=== PATIENT | female | born 1955 | race Caucasian/White ===

== ENCOUNTER 2017-02-13 09:31 | Emergency (ER) | payer BC ==
[2017-02-13] MEDS ORDERED: Ketorolac INJ* 30 MG/ML 1 ML VIAL IM ONE (10:16)
--- NOTE | 2017-02-13 10:21 | UC ---
Back Pain HPI - HPI Summary HPI Summary: 2 days ago was walking up stairs from basement/bent over to pickle cutter something/ got dizzy and fell backwards down 5 stairs unable to sleep much last PM due to pain c/o back pain >>neck pain> headache no CP or SOB - History of Current Complaint Chief Complaint: UCBackPain Stated Complaint: BACK AND NECK INJURY Time Seen by Provider: 02/13/17 10:05 Hx Obtained From: Patient Onset/Duration: Sudden Onset, Lasting Days Timing: Constant Severity Initially: Severe Severity Currently: Severe Pain Intensity: 8 Pain Scale Used: 0-10 Numeric Back Pain: Is Discrete @ - lower pain Character: Dull, Aching, Throbbing, Spasmodic Aggravating: Movement, Bending Alleviating: Nothing Associated Signs And Symptoms: Positive: Bruising - Allergies/Home Medications Allergies/Adverse Reactions: Allergies Allergy/AdvReac Type Severity Reaction Status Date / Time No Known Allergies Allergy Verified 02/13/17 10:01 Home Medications: Home Medications Atorvastatin* [Lipitor 20 MG*] 20 mg PO DAILY 02/13/17 [History Confirmed ] DULoxetine DR CAP* [Cymbalta CAP*] 60 mg PO DAILY 02/13/17 [History Confirmed ] Lisinopril & Hydrochlorothiazi [Zestoretic 20-12.5 mg-] 02/13/17 [History] PMH/Surg Hx/FS Hx/Imm Hx Endocrine History Of: Denies: Diabetes, Thyroid Disease Cardiovascular History Of: Reports: Hypertension Denies: Cardiac Disorders Respiratory History Of: Denies: COPD, Asthma GI/ History Of: Denies: Ulcer Cancer History Of: Denies: Breast Cancer - Surgical History Surgical History: Yes Surgery Procedure, Year, and Place: gastric bypass 2003. 1985 left hip replace and 2001 right hip replace - Family History Known Family History: Positive: Hypertension - Social History Alcohol Use: None Substance Use Type: None Smoking Status (MU): Never Smoked Tobacco Review of Systems Constitutional: Negative Skin: Bruising Eyes: Negative ENT: Negative Respiratory: Negative Cardiovascular: Negative Gastrointestinal: Negative Genitourinary: Negative Motor: Negative Neurovascular: Negative Musculoskeletal: Myalgia Neurological: Negative Psychological: Negative All Other Systems Reviewed And Are Negative: Yes Physical Exam Triage Information Reviewed: Yes Appearance: Well-Appearing, Well-Nourished, Pain Distress Vital Signs: Initial Vital Signs Temp 97.5 F 02/13/17 09:54 Pulse 85 02/13/17 09:54 Resp 20 02/13/17 09:54 BP 164/88 02/13/17 09:54 Pulse Ox 95 02/13/17 09:54 Vital Signs Reviewed: Yes Eyes: Positive: Conjunctiva Clear ENT: Positive: Hearing grossly normal, Other: - surgical scars BCCs nose. Negative: Nasal congestion, Nasal drainage, Trismus, Muffled/hoarse voice Dental: Negative: Dental Fracture @ Neck: Positive: Supple, Tenderness @ - bilateral trapzieus, Other: - no midline kailyn tenderness Respiratory: Positive: Lungs clear, Normal breath sounds, No respiratory distress, No accessory muscle use Cardiovascular: Positive: RRR, No Murmur Abdomen Description: Positive: Nontender Neurological: Positive: Alert, Muscle Tone Normal Psychological Exam: Normal Re-Evaluation - Re-Evaluation First Eval Re-Evaluation Time: 11:22 - pain decrease 4/10 Change: Improved Back Pain Course/Dx - Differential Dx/Diagnosis Provider Diagnoses: compression fracture of t 12 (mild)]. cervical strain. rib contusions. scalp contusion Discharge - Discharge Plan Condition: Stable Disposition: HOME Prescriptions: Cyclobenzaprine TAB* [Flexeril 10 MG TAB*] 5 mg PO TID PRN #21 tab PRN Reason: Spasms HYDROcodone/ACETAMIN 5-325 MG* [[place] 5-325 TAB*] 1 tab PO Q4H PRN #20 tab MDD 6 PRN Reason: pain Ibuprofen TAB* [Motrin TAB* 800 MG] 800 mg PO QID PRN #40 tab PRN Reason: Pain Patient Education Materials: Vertebral Compression Fracture (ED), Cervical Sprain (ED), Rib Contusion (ED) Referrals: Ruel Lam MD [Primary Care Provider] - 4 Days Additional Instructions: recheck with your MD late this week or early next soft cervical collar may help Images Head: 1 - tender 2 - tender Front/Back of Body, Lg ([place]): 1 - tender 2 - tender rib springing/ecchymosis
--- NOTE | 2017-02-13 11:00 | RAD ---
INDICATION: Left rib injury COMPARISON: Chest x-ray February 28, 2006 TECHNIQUE: Multiple views of the ribs were obtained. FINDINGS: Bones: There is no evidence of acute rib fracture. LUNGS: The lungs are clear. There is no pneumothorax. Pleural spaces: There is no evidence of hemothorax. Other: None IMPRESSION: NO ACUTE RIB FRACTURE.
--- NOTE | 2017-02-13 11:12 | RAD ---
Indication: Back pain. 5 views of lumbar spine are reviewed. The lumbar vertebral bodies appear normal in height. There may be some mild compression of the T12 vertebra age of which is undetermined. Diffuse osteopenia is noted. There is grade 1 spondylolisthesis of L3 on 4. Spinal canal appears to be intact. IMPRESSION: Diffuse osteopenia. Grade 1 spondylolisthesis of L3 on 4. Mild compression of T12 age of which is undetermined.
[2017-02-13 11:56] VITALS: BP 161/100
== END 2017-02-13 11:46 | disposition home or self-care (01) ==
LOC: UCEAST 09:31
DX: S22.080A Wedge compression fracture of T11-T12 vertebra, initial encounter for closed fracture (principal); S16.1XXA Strain of muscle, fascia and tendon at neck level, initial encounter; S20.20XA Contusion of thorax, unspecified, initial encounter; S00.03XA Contusion of scalp, initial encounter; W10.9XXA Fall (on) (from) unspecified stairs and steps, initial encounter; Y93.89 Activity, other specified; Y92.008 Other place in unspecified non-institutional (private) residence as the place of occurrence of the external cause; M43.17 Spondylolisthesis, lumbosacral region; M85.88 Other specified disorders of bone density and structure, other site; I10 Essential (primary) hypertension; Z96.643 Presence of artificial hip joint, bilateral; Z98.84 Bariatric surgery status
CPT/HCPCS: 72110; 96372; 99212; G0463; J1885

== ENCOUNTER 2017-02-17 17:07 | Emergency (ER) | payer BC ==
[2017-02-17] MEDS ORDERED: Carisoprodol TAB* 350 MG PO ONE (20:29)
[2017-02-17] MEDS ORDERED: Ketorolac INJ* 60 MG/2 ML VIAL IM ONE (20:29)
[2017-02-17 21:52] VITALS: BP 140/86
--- NOTE | 2017-02-17 23:56 | UC ---
Ethan Roberson Michael, scribed for Ivelisse Fuller MD on 02/17/17 at 2023 . Back Pain HPI - HPI Summary HPI Summary: 61 y/o female comes to Urgent Care presenting with constant right sided back pain that started 6 days ago and continues to persist. The pt was seen at [facility] on 02/13/17 for the fall. At that time, the pt c/o back pain, neck pain and [place]. She was dx with a t12 fx after falling down 5 steps. She was discharged with Narco and Flexeril. Currently, she rates the pain as a 10 out of 10 on a pain assessment scale, and the pain is described as stabbing and sharp. It is not alleviated by anything. The pt denies all other symptoms. - History of Current Complaint Chief Complaint: UCBackPain Stated Complaint: BACK PAIN Time Seen by Provider: 02/17/17 20:09 Hx Obtained From: Patient, Medical Records Onset/Duration: Sudden Onset, Lasting Days, Still Present Timing: Constant Severity Initially: Moderate Severity Currently: Moderate Pain Intensity: 10 Pain Scale Used: 0-10 Numeric Back Pain: Is Diffuse - back pain Character: Sharp Alleviating: Nothing Associated Signs And Symptoms: Positive: Other - back pain. - Allergies/Home Medications Allergies/Adverse Reactions: Allergies Allergy/AdvReac Type Severity Reaction Status Date / Time No Known Allergies Allergy Verified 02/17/17 19:24 PMH/Surg Hx/FS Hx/Imm Hx Endocrine History Of: Denies: Diabetes, Thyroid Disease Cardiovascular History Of: Reports: Hypertension Denies: Cardiac Disorders Respiratory History Of: Denies: COPD, Asthma GI/ History Of: Denies: Ulcer Cancer History Of: Denies: Breast Cancer - Surgical History Surgical History: Yes Surgery Procedure, Year, and Place: gastric bypass 2003. 1985 left hip replace and 2001 right hip replace - Family History Known Family History: Positive: Hypertension - Social History Occupation: Employed Full-time Lives: Alone Alcohol Use: None Substance Use Type: None Smoking Status (MU): Never Smoked Tobacco Review of Systems Constitutional: Negative Skin: Negative Eyes: Negative ENT: Negative Respiratory: Negative Cardiovascular: Negative Gastrointestinal: Negative Genitourinary: Negative Motor: Negative Neurovascular: Negative Musculoskeletal: Other: - right sided back pain Neurological: Negative Psychological: Negative All Other Systems Reviewed And Are Negative: Yes Physical Exam Triage Information Reviewed: Yes Appearance: Obese Vital Signs: Initial Vital Signs Temp 96.1 F 02/17/17 19:18 Pulse 123 02/17/17 19:18 Resp 20 02/17/17 19:18 BP 180/113 02/17/17 19:18 Pulse Ox 99 02/17/17 19:18 Vital Signs Reviewed: Yes Eye Exam: Normal ENT Exam: Normal Respiratory Exam: Normal - no dyspnea, no tachypnea, normal respiratory rate Cardiovascular Exam: Normal - Heart rate regular, good general skin color, good capillary refill Abdominal Exam: Normal - Nontender, No Organomegaly, Soft Bowel Sounds: Positive: Present Musculoskeletal: Positive: Other: - Right ecchymosis posterior back Neurological Exam: Normal - nonfocal, grossly intact Neurological: Positive: Other: - reflexes intact 1-2+ equal bilat Psychological Exam: Normal - : conversing easily and appropriately Skin Exam: Normal - no visible or reported rash Back Pain Course/Dx - Course Course Of Treatment: Reports that she is here only to try to get further pain relief. [place] / flexeril not helping. States felt better 02/13/17 s/p ketoralac IM, and request this. + hx gastric bypass sx, but she wishes this anyway, especially since it helped before. Script for soma (in place of flexeril) as well. Offered transfer to the ED for further evaluation / imaging and management, but Ms. Alegre politely but firmly declines. Will f/u with pcp on Monday, will go to the ED for worse or new problems in the meantime. She is aware that further imaging likely will be indicated. Questions answered as posed to the best of my ability. ISTOP reference number [id number] - Differential Dx/Diagnosis Provider Diagnoses: Low back pain s/p injury. Sciatica Discharge - Discharge Plan Condition: Stable Disposition: HOME Prescriptions: Carisoprodol TAB* [Soma TAB*] 350 mg PO TID PRN #20 tab MDD 3 PRN Reason: Spasms Patient Education Materials: Sciatica (ED), Acute Low Back Pain (ED) Referrals: Ruel Lam MD [Primary Care Provider] - Additional Instructions: Follow up with Dr. Lam - call Monday for appointment early this week. Meanwhile, go to the Emergency Department for worse or new problems. Your X-rays from 5/1/17 indicate an age unknown T12 compression fracture. You will benefit from further imaging studies, in regard both to this and to your lower back pain. The documentation as recorded by the rishiibEthan luna Michael accurately reflects the service I personally performed and the decisions made by me, Ivelisse Fuller MD.
== END 2017-02-17 20:51 | disposition home or self-care (01) ==
LOC: UCEAST 17:07
DX: M54.41 Lumbago with sciatica, right side (principal); I10 Essential (primary) hypertension
CPT/HCPCS: 96372; 99212; A9270-GY; G0463; J1885

== ENCOUNTER 2018-07-26 15:53 | Emergency (ER) | payer BC ==
--- NOTE | 2018-07-26 16:27 | UC ---
Throat Pain/Nasal Flavio HPI - HPI Summary HPI Summary: 62 yo female presents with sore throat that began yesterday. She believes that she has strep throat. Noticed redness and white spots in the back of her throat. Denies fever, chills, sinus symptoms, cough, rash. - History of Current Complaint Stated Complaint: SORE THROAT,EARS Time Seen by Provider: 07/26/18 16:27 Hx Obtained From: Patient Onset/Duration: Sudden Onset Severity: Moderate Pain Intensity: 5 Pain Scale Used: 0-10 Numeric - Allergies/Home Medications Allergies/Adverse Reactions: Allergies Allergy/AdvReac Type Severity Reaction Status Date / Time No Known Allergies Allergy Verified 07/26/18 16:30 PMH/Surg Hx/FS Hx/Imm Hx Endocrine History: Dyslipidemia Cardiovascular History: Hypertension Psychological History: Anxiety, Depression - Surgical History Surgical History: Yes Surgery Procedure, Year, and Place: gastric bypass 2003. 1985 left hip replace and 2001 right hip replace - Family History Known Family History: Positive: Hypertension - Social History Occupation: Employed Full-time Lives: With Family Alcohol Use: None Substance Use Type: None Smoking Status (MU): Never Smoked Tobacco Review of Systems Constitutional: Negative Skin: Negative Eyes: Negative ENT: Sore Throat Respiratory: Negative Cardiovascular: Negative Gastrointestinal: Negative Neurological: Negative Psychological: Negative All Other Systems Reviewed And Are Negative: Yes Physical Exam - Summary Physical Exam Summary: GENERAL: NAD. WDWN. No pain distress. SKIN: No rashes, sores, lesions, or open wounds. HEENT: Head: AT/NC Eyes: Conjunctiva clear without inflammation or discharge. Ears: Hearing grossly normal. TMs intact, no bulging, erythema, or edema. Nose: Nasal mucosa pink and moist. NTTP maxillary and frontal sinus. Throat: Posterior oropharynx mild erythema and 2+ tonsillar enlargement. Mild exudates. Uvula midline. No hoarse voice or muffled voice. NECK: Supple. Nontender. No lymphadenopathy. CHEST: CTAB. No r/r/w. No accessory muscle use. Breathing comfortably and in no distress. CV: RRR. Without m/r/g. Pulses intact. Cap refill <2seconds NEURO: Alert. PSYCH: Age appropriate behavior. Triage Information Reviewed: Yes Vital Signs: Vital Signs: Temp Pulse Resp BP Pulse Ox 98.4 F 82 16 137/79 100 07/26/18 16:25 07/26/18 16:25 07/26/18 16:25 07/26/18 16:25 07/26/18 16:25 Laboratory Tests 07/26/18 16:39 Group A Strep Rapid Positive A Throat Pain/Nasal Course/Dx - Course Course Of Treatment: POC strep positive. Rx for amoxicillin. - Differential Dx/Diagnosis Provider Diagnoses: Strep pharyngitis Discharge - Sign-Out/Discharge Documenting (check all that apply): Patient Departure All imaging exams completed and their final reports reviewed: No Studies - Discharge Plan Condition: Stable Disposition: HOME Prescriptions: Amoxicillin PO (*) [Amoxicillin 500 MG CAP*] 500 mg PO Q12H #20 cap Ibuprofen TAB* [Motrin TAB* 800 MG] 800 mg PO Q6H PRN #60 tab PRN Reason: Pain Patient Education Materials: Strep Throat (DC) Referrals: Ruel Lam MD [Primary Care Provider] - Additional Instructions: If you develop a fever, shortness of breath, chest pain, new or worsening symptoms - please call your PCP or go to the ED. - Billing Disposition and Condition Condition: STABLE Disposition: Home
[2018-07-26 16:30] VITALS: BP 137/79
== END 2018-07-26 16:56 | disposition home or self-care (01) ==
LOC: UCCORT 15:53
DX: J02.0 Streptococcal pharyngitis (principal); I10 Essential (primary) hypertension
CPT/HCPCS: 87651; 99212; G0463